=== PATIENT | female | born 1985 | race Caucasian/White ===

== ENCOUNTER 2016-12-25 08:32 | Emergency (ER) | payer OTHER ==
[2016-12-25 08:45] VITALS: TEMP 98.1
[2016-12-25 09:51] LABS: COLOR PALE YELLOW; LEUKOCYTE ESTERASE,URINE NEGATIVE (NEGATIVE); NITRITE,URINE NEGATIVE (NEGATIVE)
[2016-12-25 09:56] LABS: BACTERIA TRACE /hpf (NONE SEEN)
[2016-12-25 09:57] LABS: WBC,URINE NONE SEEN /hpf (0-3)
[2016-12-25] MEDS ORDERED: KETOROLAC 30 MG/1 ML SDV IVP ONE (10:09)
[2016-12-25] MEDS ORDERED: NS 1,000 ML IV ONE (10:09)
[2016-12-25] MEDS ORDERED: ONDANSETRON 4 MG/2 ML VIAL IVP ONE (10:09)
--- NOTE | 2016-12-25 10:12 | EDPHY ---
H & P Time Seen by Provider: 12/25/16 09:56 HPI/ROS: CHIEF COMPLAINT: Left lower abdominal pain HISTORY OF PRESENT ILLNESS: Patient is a 31-year-old female with a history of autoimmune disorder who presents to the emergency department with left lower quadrant abdominal discomfort. Her pain initially started yesterday. It lasted for approximately 3 hours and then resolved. She had an episode of vomiting yesterday. Today the pain returned early in the morning. It is mildly improving. Still focused to the left lower quadrant radiates to the left flank. She has had no dysuria, frequency or hematuria. She has had chills but no measured fever. No vaginal discharge. Her last menstrual periods 1/2 weeks ago. The patient is not sexually active and states she cannot be . REVIEW OF SYSTEMS: My complete review of systems is negative except as mentioned in the HPI. Past Medical/Surgical History: Includes autoimmune disorder Past surgical history: Ankle surgery Social history: The patient does not smoke. She occasionally drinks alcohol. Smoking Status: Never smoked Physical Exam: Vitals noted GENERAL: Well-appearing, in no acute distress, alert. HEENT: Eyes normal to inspection, normal pharynx, no signs of dehydration. NECK: No thyromegaly, no lymphadenopathy, supple. RESPIRATORY: Clear to auscultation bilaterally, no rales, rhonchi or wheezing. CVS: Regular rate and rhythm, no rubs, murmurs, or gallops. ABDOMEN: Soft, nontender, nondistended, no organomegaly. Patient exam is benign BACK: Normal to inspection, no CVA tenderness. SKIN: Normal color, no rash, warm, dry. No pallor. EXTREMITIES: No pedal edema, no calf tenderness, no Homans sign or cords, no joint swelling. NEURO/PSYCH: Alert and oriented, normal mood and affect, normal motor sensory exam. Constitutional: Initial Vital Signs Temperature (C) 36.7 C 12/25/16 08:43 Heart Rate 89 12/25/16 08:43 Respiratory Rate 16 12/25/16 08:43 Blood Pressure 135/78 H 12/25/16 08:43 O2 Sat (%) 98 12/25/16 08:43 O2 Delivery Mode Room Air Allergies/Adverse Reactions: doxycycline Allergy (Verified 11/03/13 13:39) Home Medications: Medication Instructions Recorded Albuterol Sulfate Hfa 11/03/13 Ondansetron Odt [Zofran Odt 4 mg 4 mg PO Q4PRN PRN #7 tab 12/25/16 (*)] Tamsulosin HCl [Flomax] 0.4 mg PO DAILY #4 cap 12/25/16 oxyCODONE/APAP 5/325 [Percocet 1 - 2 tab PO Q4PRN PRN #11 tab 12/25/16 5/325 (*)] Medical Decision Making ED Course/Re-evaluation: In the emergency department I discussed possible etiologies with the patient. I answered all her questions. IV was placed. Patient was given normal saline 500 mL IV for hydration. She was given Toradol 30 mg IV for pain control. She was given Zofran 4 mg IV for nausea. Laboratory studies, urine and CT scan were ordered. UA: Positive red cells. I discussed the result with the patient and answered all her questions. The CT of abdomen pelvis without contrast: Please refer the dictated report by Dr. Gadiel Resendez. The patient is a 3 mm stone at the left UVJ. There is mild hydronephrosis. 1125: I discussed the result with the patient. I answered all her questions. At this time she was pain free. On exam her abdomen was soft, nontender nondistended. I discussed the diagnosis and the need for close follow-up. She was given warnings prior to leaving. Prior to leaving the emergency department she was given Flomax orally. She was given a prescription for Flomax, Zofran and Percocet. Differential Diagnosis: My differential includes but is not limited to urinary tract infection, pyelonephritis, kidney stone, ovarian cyst, ovarian torsion, , ectopic - Data Points Laboratory Results: Laboratory Results 12/25/16 10:14 12/25/16 10:14 12/25/16 12/25/16 12/25/16 10:14 10:14 10:14 WBC 13.76 10^3/uL H 10^3/uL (3.80-9.50) RBC 4.50 10^6/uL 10^6/uL (4.18-5.33) Hgb 12.5 g/dL L g/dL (12.6-16.3) Hct 37.2 % L % (38.0-47.0) MCV 82.7 fL fL (81.5-99.8) MCH 27.8 pg L pg (27.9-34.1) MCHC 33.6 g/dL g/dL (32.4-36.7) RDW 12.5 % % (11.5-15.2) Plt Count 396 10^3/uL 10^3/uL (150-400) MPV 9.1 fL fL (8.7-11.7) Neut % (Auto) 82.0 % H % (39.3-74.2) Lymph % (Auto) 11.7 % L % (15.0-45.0) Grady % (Auto) 4.8 % % (4.5-13.0) Eos % (Auto) 0.8 % % (0.6-7.6) Baso % (Auto) 0.3 % % (0.3-1.7) Nucleat RBC Rel Count 0.0 % % (0.0-0.2) Absolute Neuts (auto) 11.28 10^3/uL H 10^3/uL (1.70-6.50) Absolute Lymphs (auto) 1.61 10^3/uL 10^3/uL (1.00-3.00) Absolute Monos (auto) 0.66 10^3/uL 10^3/uL (0.30-0.80) Absolute Eos (auto) 0.11 10^3/uL 10^3/uL (0.03-0.40) Absolute Basos (auto) 0.04 10^3/uL 10^3/uL (0.02-0.10) Absolute Nucleated RBC 0.00 10^3/uL 10^3/uL (0-0.01) Immature Gran % 0.4 % % (0.0-1.1) Immature Gran # 0.06 10^3/uL 10^3/uL (0.00-0.10) Sodium 139 mEq/L mEq/L (134-144) Potassium 4.1 mEq/L mEq/L (3.5-5.2) Chloride 107 mEq/L mEq/L (97-110) Carbon Dioxide 21 mEq/l L mEq/l (22-31) Anion Gap 11 mEq/L mEq/L (8-16) BUN 10 mg/dL mg/dL (7-23) Creatinine 0.8 mg/dL mg/dL (0.6-1.0) Estimated GFR > 60 Glucose 99 mg/dL mg/dL (70-100) Calcium 9.6 mg/dL mg/dL (8.5-10.4) Beta HCG, Qual NEGATIVE Urine Color Urine Appearance Urine pH Ur Specific [place] Urine Protein Urine Ketones Urine Blood Urine Nitrate Urine Bilirubin Urine Urobilinogen Ur Leukocyte Esterase Urine RBC Urine WBC Ur Epithelial Cells Urine Bacteria Urine Glucose 12/25/16 09:45 WBC RBC Hgb Hct MCV MCH MCHC RDW Plt Count MPV Neut % (Auto) Lymph % (Auto) Grady % (Auto) Eos % (Auto) Baso % (Auto) Nucleat RBC Rel Count Absolute Neuts (auto) Absolute Lymphs (auto) Absolute Monos (auto) Absolute Eos (auto) Absolute Basos (auto) Absolute Nucleated RBC Immature Gran % Immature Gran # Sodium Potassium Chloride Carbon Dioxide Anion Gap BUN Creatinine Estimated GFR Glucose Calcium Beta HCG, Qual Urine Color PALE YELLOW Urine Appearance CLEAR Urine pH 6.0 (5.0-7.5) Ur Specific [place] 1.002 (1.002-1.030) Urine Protein NEGATIVE (NEGATIVE) Urine Ketones NEGATIVE (NEGATIVE) Urine Blood 2+ H (NEGATIVE) Urine Nitrate NEGATIVE (NEGATIVE) Urine Bilirubin NEGATIVE (NEGATIVE) Urine Urobilinogen NEGATIVE EU EU (0.2-1.0) Ur Leukocyte Esterase NEGATIVE (NEGATIVE) Urine RBC 5-10 /hpf H /hpf (0-3) Urine WBC NONE SEEN /hpf /hpf (0-3) Ur Epithelial Cells NONE SEEN /lpf /lpf (NONE-1+) Urine Bacteria TRACE /hpf H /hpf (NONE SEEN) Urine Glucose NEGATIVE (NEGATIVE) Medications Given: Discontinued Medications Sodium Chloride (Ns) 1,000 mls @ 0 mls/hr IV ONCE ONE PRN Reason: Wide Open Stop: 12/25/16 10:10 Last Admin: 12/25/16 10:23 Dose: 1,000 mls Ketorolac Tromethamine (Toradol) 30 mg IVP EDNOW ONE Stop: 12/25/16 10:10 Last Admin: 12/25/16 10:23 Dose: 30 mg Ondansetron HCl (Zofran) 4 mg IVP EDNOW ONE Stop: 12/25/16 10:10 Last Admin: 12/25/16 10:22 Dose: 4 mg Departure - Departure Disposition: Home, Routine, Self-Care Clinical Impression: Kidney stone on left side Abdominal pain Qualifiers: Abdominal location: left lower quadrant Qualified Code(s): R10.32 - Left lower quadrant pain Condition: Good Instructions: Acute Abdominal Pain (ED), Kidney Stones (ED) Additional Instructions: You have a 3 mm kidney stone on the left side. You need follow-up with Urology. Take your medications as needed. Return with increasing pain, vomiting, fever or any other concerns. Referrals: NONE *PRIMARY CARE P,. [Primary Care Provider] - As per Instructions Linette Jessica MD [Medical Doctor] - 2-3 days, if not improved Prescriptions: Ondansetron Odt [Zofran Odt 4 mg (*)] 4 mg PO Q4PRN PRN #7 tab PRN Reason: For Nausea & Vomiting oxyCODONE/APAP 5/325 [Percocet 5/325 (*)] 1 - 2 tab PO Q4PRN PRN #11 tab PRN Reason: For Moderate To Severe Pain Tamsulosin HCl [Flomax] 0.4 mg PO DAILY #4 cap
[2016-12-25 10:22] LABS: % IMMATURE GRANULYOCYTES 0.4 % (0.0-1.1); ABSOLUTE IMMATURE GRANULOCYTES 0.06 10^3/uL (0.00-0.10); ADD DIFF? NO; ADD MORPH? NO; ADD SCAN? NO; ATYPICAL LYMPHOCYTE FLAG 0 (0-99); FRAGMENT RBC FLAG 0 (0-99); HEMATOCRIT 37.2 % (38.0-47.0); HEMOGLOBIN 12.5 g/dL (12.6-16.3); LEFT SHIFT FLG 0 (0-99); LIPEMIA HEMOLYSIS FLAG 80 (0-99); MEAN CELL HEMOGLOBIN 27.8 pg (27.9-34.1); MEAN CELL HEMOGLOBIN CONCENTR. 33.6 g/dL (32.4-36.7); MEAN CELL VOLUME 82.7 fL (81.5-99.8); MEAN PLATELET VOLUME 9.1 fL (8.7-11.7); PLATELET CLUMPS FLAG 10 (0-99); PLATELET COUNT 396 10^3/uL (150-400); RED CELL DISTRIBUTION WIDTH 12.5 % (11.5-15.2)
[2016-12-25 10:45] LABS: ANION GAP 11 mEq/L (8-16); CALCIUM 9.6 mg/dL (8.5-10.4); CARBON DIOXIDE 21 mEq/l (22-31); CHLORIDE 107 mEq/L (97-110); CREATININE 0.8 mg/dL (0.6-1.0); GLOMERULAR FILTRATION RATE > 60; GLUCOSE 99 mg/dL (70-100); POTASSIUM 4.1 mEq/L (3.5-5.2); SODIUM 139 mEq/L (134-144)
[2016-12-25] MEDS ORDERED: TAMSULOSIN HCL 0.4 MG CAP PO ONE (11:31)
[2016-12-25 11:51] VITALS: BP 120/91; PULSE 94; RESP 18; O2SAT 94
== END 2016-12-25 11:51 | disposition home or self-care (01) ==
DX: N20.0 Calculus of kidney (principal)
CPT/HCPCS: 96374; J1885; J2405